=== PATIENT | male | born 1995 | race Caucasian/White ===

== ENCOUNTER 2020-12-12 00:10 | Emergency (ER) | payer OTHER | END 2020-12-12 01:15 | disposition home or self-care (01) | LOC: ER1 00:10 | DX: F41.9 Anxiety disorder, unspecified (principal); R03.0 Elevated blood-pressure reading, without diagnosis of hypertension; Z90.89 Acquired absence of other organs; Z98.2 Presence of cerebrospinal fluid drainage device; F17.220 Nicotine dependence, chewing tobacco, uncomplicated | CPT/HCPCS: 99283 ==

== ENCOUNTER → 2021-03-23 | Outpatient (CLI) | payer OTHER | LOC: KOH-I 13:48 | DX: N50.89 Other specified disorders of the male genital organs (principal) | CPT/HCPCS: 76870 ==